=== PATIENT | female | born 1995 ===

== ENCOUNTER 2019-03-30 15:06 | Emergency (ER) | payer BC ==
[2019-03-30 16:17] LABS: HIV (1/2) Antibody/Antigen Non-Reactive (NonReactive); HIV 1/2 INDEX 0.18 S/CO (<1.00); Hep C IgG Ab Non-Reactive (NonReactive); Hep C Index 0.16 S/CO (0-0.79)
[2019-03-30 17:05] LABS: HBSAB Concentration 5216.34 mIU/mL; Hep B Surf AB Reactive (NonReactive)
== END 2019-03-30 16:05 | disposition home or self-care (01) ==
LOC: ERS 15:06
DX: S69.92XA Unspecified injury of left wrist, hand and finger(s), initial encounter (principal); W27.3XXA Contact with needle (sewing), initial encounter
CPT/HCPCS: 36415; 86706; 86803; 87389; 99283